=== PATIENT | female | born 1955 | race Caucasian/White ===

== ENCOUNTER 2019-04-04 20:38 | Emergency (ER) | payer BC ==
[~2019-04-04] VITALS: Ht 175.3 cm; Wt 77.1 kg
--- NOTE | 2019-04-04 20:49 | NUR ---
md at bedside for hx and physical pt described bladder spasms and pain that started last night AOX4, AMBULATORY W/ STABLE GAIT, ABLE TO SPEAK CLEARLY IN COMPLETE SENTENCES +NAUSEA, DENIES V/D +POLYURIA, NORMAL FLOW, DENIES HEMATURIA NOT IN APPARENT DISTRESS
[2019-04-04] MEDS ORDERED: HYDROMORPHONE 1 MG/1 ML DISP.SYRIN IM ONE (21:00)
[2019-04-04] MEDS ORDERED: HYDROMORPHONE 1 MG/1 ML DISP.SYRIN ONE (21:00)
[2019-04-04 21:03] LABS: *BILIRUBIN,URIN NEGATIVE (NEGATIVE); *BLOOD, URINE NEGATIVE (NEGATIVE); *CLARITY,URINE CLEAR (CLEAR); *COLOR,URINE Orange (YELLOW); *KETONES,URINE NEGATIVE (NEGATIVE); LEUKOCYTE ESTERASE ,URINE NEGATIVE (NEGATIVE); PH,URINE 5.5 (5.0-8.0); UGLUCOSE TRACE (NEGATIVE)
--- NOTE | 2019-04-04 21:05 | NUR ---
ABLE TO VOID AND PROVIDE URINE SAMPLE +PAIN [phone] PAIN ON LOWER ABDOMEN, "BLADDER PAIN THAT COMES IN WAVES, ON AND OFF AND I CANNOT TAKE IT ANYMORE" +VULVAR TENDERNESS AND DISCOMFORT UPON URINATION +TAKE PYRIDIUM RECENTLY WITHOUT RELIEF NOTED URINE ORANGE
[2019-04-04 21:10] LABS: NITRITE, URINE NEGATIVE (NEGATIVE)
[2019-04-04 21:11] LABS: SQUAMOUS EPITHELIAL CELL,UR MODERATE /HPF (NONE SEEN); WBC,URINE 0-3 /HPF (0-3)
--- NOTE | 2019-04-04 21:34 | NUR ---
AT BEDSIDE FOR UPDATE AND ALAYNA
[2019-04-04 21:49] LABS: BASOPHILS % (AUTO) 1.1 % (0.0-2.0); EOSINOPHILS # (AUTO) 0.3 K/uL (0.0-0.7); EOSINOPHILS % (AUTO) 8.5 % (0.0-7.0); HEMATOCRIT 33.4 % (31.2-41.9); HEMOGLOBIN 11.2 g/dL (10.9-14.3); LYMPHOCYTES # (AUTO) 1.2 K/uL (20.0-40.0); LYMPHOCYTES % (AUTO) 31.7 % (20.5-51.5); MEAN CORPUSCULAR HEMOGLOBIN 30.5 uug (24.7-32.8); MEAN CORPUSCULAR HGB CONC 34 g/dL (32.3-35.6); MONOCYTES # (AUTO) 0.4 K/uL (2.0-10.0); MONOCYTES % (AUTO) 9.7 % (0.0-11.0); NEUTROPHILS # (AUTO) 1.8 K/uL (1.8-8.9); PLATELET COUNT (AUTO) 181 K/uL (179-408); RED BLOOD CELL COUNT(AUTO) 3.67 MIL/uL (3.63-4.92); WHITE BLOOD COUNT (AUTO) 3.7 K/uL (3.8-11.8)
--- NOTE | 2019-04-04 21:53 | NUR ---
[employer] AT BEDSIDE PT BROUGHT FOR CT SCAN VIA WHEELCHAIR
[2019-04-04 21:56] LABS: CREATININE 1.3 mg/dL (0.6-1.3); POTASSIUM 4.3 mmol/L (3.5-5.1)
[2019-04-04 22:02] LABS: BILIRUBIN,TOTAL 0.4 mg/dL (0.2-1.0); TOTAL PROTEIN, SERUM 6.6 g/dL (6.4-8.2)
--- NOTE | 2019-04-04 22:04 | NUR ---
BACK FROM CT ACC BY TECH MONITORED ACCORDINGLY ON BED AT [facility] STATES PAIN MEDS HAS HELPED SIDERAILSX2 UP KEPT WARM DRY AND COMFORTABLE Addendum: 04/04/19 at 2208 by BRITTNI STATES PAIN MEDS HAS HELPED INITIALLY BUT PAIN IS STARTING TO COME BACK AGAIN AFTER CT NONRADIATING, SPASTIC BLADDER PAIN ALONG WITH VULVAR DISCOMFORT
[2019-04-04] MEDS ORDERED: MAGNESIUM CITRATE 296 ML BOTTLE ONE (22:44)
[2019-04-04] MEDS ORDERED: MAGNESIUM CITRATE 296 ML BOTTLE PO ONE (22:45)
--- NOTE | 2019-04-04 23:20 | NUR ---
Patient discharged to home in stable conditon. Written and verbal after care instructions given. Patient verbalizes understanding of instructions. AMBULATORY W/ STABLE GAIT
[2019-04-04 23:22] VITALS: BP 128/81
== END 2019-04-04 23:00 | disposition home or self-care (01) ==
LOC: ER 20:40
DX: R10.30 Lower abdominal pain, unspecified (principal); R35.0 Frequency of micturition; R39.15 Urgency of urination; R11.0 Nausea
CPT/HCPCS: 36415; 74176; 80053; 81000; 81001; 83690; 85025; 87086; 96372; 99284; J1170; A4663